=== PATIENT | female | born 1955 | race Caucasian/White ===

== ENCOUNTER 2017-08-01 12:05 | Emergency (ER) | payer OTHER ==
[2017-08-01 12:13] VITALS: BMI 38.4
[2017-08-01 12:15] VITALS: RESP 18
[2017-08-01] MEDS ORDERED: Oxycodone/Acetaminophen 5/325 mg Tab PO STA (13:12)
[2017-08-01] MEDS ORDERED: Oxycodone/Acetaminophen 5/325 mg Tab ONE (13:37)
--- NOTE | 2017-08-01 13:50 | RAD ---
PROCEDURE: Radiographs of the Lumbar Spine. HISTORY: pain COMPARISON: No prior. FINDINGS: BONES: Normal alignment. No listhesis. No compression deformity. DISC SPACES: Unremarkable. OTHER FINDINGS: Facet arthropathy. IMPRESSION: Degenerative changes. If symptoms persist, cross-sectional imaging with MRI should be obtained.
--- NOTE | 2017-08-01 13:54 | RAD ---
Right hip History: Pain. Technique: Two views of the right hip. Findings: No radiographically apparent fracture. Degenerative changes of the right hip. This appears more in comparison to the left hip. There is joint space narrowing and productive changes involving the acetabulum. Impression: There is no radiographically apparent fracture. Moderate to severe arthritic changes involving the right hip. MRI should be obtained if symptoms persist.
[2017-08-01 14:00] LABS: URINE BILIRUBIN NEGATIVE (NEGATIVE); URINE BLOOD NEGATIVE (NEGATIVE); URINE CLARITY Clear (Clear); URINE COLOR Yellow (YELLOW); URINE GLUCOSE (UA) NORMAL (Normal); URINE LEUKOCYTE ESTERASE NEG Leu/uL (Negative); URINE PROTEIN NEGATIVE (NEGATIVE); URINE UROBILINOGEN NORMAL mg/dL (0.2-1.0)
--- NOTE | 2017-08-01 14:08 | C.PDOC ---
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 Patient also reports having associated dysuria, urinary frequency, and urinary urgency for the past 2 weeks. Patient has not seen PMD for her symptoms. Denies fever, weakness, or numbness. Time Seen by Provider: 08/01/17 12:59 Chief Complaint (Nursing): Lower Extremity Problem/Injury History Per: Patient History/Exam Limitations: no limitations Onset/Duration Of Symptoms: Days Current Symptoms Are (Timing): Still Present Recent travel outside of the [place]: No Past Medical History Reviewed: Historical Data, Nursing Documentation, Vital Signs Vital Signs: Last Vital Signs Temp 98.1 F 08/01/17 14:25 Pulse 68 08/01/17 14:25 Resp 18 08/01/17 14:25 BP 110/70 08/01/17 14:25 Pulse Ox 97 08/01/17 14:25 - Medical History PMH: Arthritis Family History: States: Unknown Family Hx - Social History Hx Alcohol Use: No Hx Substance Use: No - Immunization History Hx Tetanus Toxoid Vaccination: No Hx Influenza Vaccination: No Hx Pneumococcal Vaccination: No Review Of Systems Constitutional: Negative for: Fever Genitourinary: Positive for: Dysuria, Frequency, Other (Urgency) Musculoskeletal: Positive for: Back Pain (Right lower), Leg Pain (Right), Other (right hip) Neurological: Negative for: Weakness, Numbness Physical Exam - Physical Exam Appears: Non-toxic, No Acute Distress Skin: Normal Color, Warm, Dry Head: Atraumatic, Normacephalic Eye(s): bilateral: Normal Inspection Gastrointestinal/Abdominal: Soft, No Tenderness Back: Paraspinal Tenderness (Right lumbar) Extremity: Tenderness (Right posterior thigh, right posterior buttock), No Deformity, No Swelling Neurological/Psych: Oriented x3, Normal Speech, Normal Motor, Normal Sensation Gait: Steady ED Course And Treatment O2 Sat by Pulse Oximetry: 95 (room air) Pulse Ox Interpretation: Normal - Other Rad LS Spine X-ray X-Ray: Viewed By Me, Read By Radiologist Interpretation: PROCEDURE: Radiographs of the Lumbar Spine. HISTORY: pain. COMPARISON: No prior. FINDINGS: BONES: Normal alignment. No listhesis. No compression deformity. DISC SPACES: Unremarkable. OTHER FINDINGS: Facet arthropathy. IMPRESSION: Degenerative changes. If symptoms persist, cross- sectional imaging with MRI should be obtained. Right Hip X-ray X-Ray: Viewed By Me, Read By Radiologist Interpretation: Right hip. History: Pain. Technique: Two views of the right hip. Findings: No radiographically apparent fracture. Degenerative changes of the right hip. This appears more in comparison to the left hip. There is joint space narrowing and productive changes involving the acetabulum. Impression: There is no radiographically apparent fracture. Moderate to severe arthritic changes involving the right hip. MRI should be obtained if symptoms persist. Progress Note: LS spine x-ray and right hip x-ray ordered, results were negative. Urinalysis ordered. Percocet administered. Disposition - Disposition Referrals: Cyril Brown III, MD [Staff Provider] - [facility] [Outside] Disposition: HOME/ ROUTINE Disposition Time: 14:28 Condition: STABLE Additional Instructions: Follow up with your PMD and Orthopedist within 1-2 days. Return to ED if feel worse. 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 - Scribe Statement The provider has reviewed the documentation as recorded by the Scribe Long Chin All medical record entries made by the Scribcedrick were at my direction and personally dictated by me. I have reviewed the chart and agree that the record accurately reflects my personal performance of the history, physical exam, medical decision making, and the department course for this patient. I have also personally directed, reviewed, and agree with the discharge instructions and disposition.
[2017-08-01 14:27] VITALS: PULSE 68; TEMP 98.1
[2017-08-01 14:31] VITALS: O2SAT 95
[2017-08-01 14:35] VITALS: BP 116/70
== END 2017-08-01 15:12 | disposition home or self-care (01) ==
LOC: C.ER 12:05
DX: M54.16 Radiculopathy, lumbar region (principal); M25.551 Pain in right hip

== ENCOUNTER 2017-09-10 13:45 | Emergency (ER) | payer OTHER ==
[2017-09-10 13:55] VITALS: BMI 35.4
[2017-09-10 14:00] VITALS: BP 118/80; PULSE 80; RESP 18; TEMP 98.3; O2SAT 96
[2017-09-10] MEDS ORDERED: Oxycodone/Acetaminophen 5/325 mg Tab ONE (14:35)
[2017-09-10] MEDS: Oxycodone/Acetaminophen 5/325 mg Tab PO STA (14:36)
--- NOTE | 2017-09-10 14:51 | C.PDOC ---
History Of Present Illness 62 y/o female presents to the ED accompanied by daughter for evaluation of right hip pain, chronic in nature. Patient was seen here 08/01 for the same complaint and diagnosed with severe right hip arthritis. Patient was referred to [facility] and given rx for Percocet at that time. Daughter states patient has filled the prescription but is not taking the Percocet regularly because it does not work. Last dose taken last night. Patient also took naproxen this morning without relief of pain. She has not followed up with ortho as daughter states that Dr. Brown is too far from them. Otherwise patient denies any new injury, numbness, tingling, or focal weakness. Time Seen by Provider: 09/10/17 14:22 Chief Complaint (Nursing): Lower Extremity Problem/Injury History Per: Family (Daughter at bedside translating Persian for patient) History/Exam Limitations: no limitations Onset/Duration Of Symptoms: Days Current Symptoms Are (Timing): Still Present Past Medical History Reviewed: Historical Data, Nursing Documentation, Vital Signs Vital Signs: Last Vital Signs Temp 98.3 F 09/10/17 13:55 Pulse 80 09/10/17 13:55 Resp 18 09/10/17 13:55 BP 118/80 09/10/17 13:55 Pulse Ox 96 09/10/17 15:06 - Medical History PMH: Arthritis, Asthma Family History: States: Unknown Family Hx - Social History Hx Alcohol Use: No Hx Substance Use: No - Immunization History Hx Tetanus Toxoid Vaccination: No Hx Influenza Vaccination: No Hx Pneumococcal Vaccination: Yes Review Of Systems Except As Marked, All Systems Reviewed And Found Negative. Musculoskeletal: Positive for: Leg Pain (right hip) Neurological: Negative for: Weakness, Numbness, Other (tingling) Physical Exam - Physical Exam Appears: Non-toxic, No Acute Distress, Other (Persian female, Older than stated age, Morbidly obese) Skin: Normal Color, Warm, Dry Head: Atraumatic, Normacephalic Eye(s): bilateral: Normal Inspection Neck: Normal ROM Chest: Symmetrical Extremity: Normal ROM, Capillary Refill (< 2 sec), No Deformity, No Swelling, Other (Pain to right hip on ROM, resolves at rest) Pulses: Left Dorsalis Pedis: Normal, Right Dorsalis Pedis: Normal Neurological/Psych: Oriented x3, Normal Motor, Normal Sensation, No Other ( focal deficits) Gait: Steady ED Course And Treatment O2 Sat by Pulse Oximetry: 96 (RA) Pulse Ox Interpretation: Normal Medical Decision Making Medical Decision Making: Impression: chronic R hip arthritis pain, referred to Dr. Brown- Ortho- 6 wks ago but pt and family @ bedside w poor insight and lost to follow-up Discussed w/ patient's PMD, Dr. Cornel Cardona, to help facilitate follow up plan Non-compliant with Percocet- one given in ED Patient is medically stable at this time. Counseled regarding the need for orthopedic follow up, referral to Dr. Brown again provided. Meds and follow-up reinforced. Daughter at bedside translating for patient to ensure understanding. Disposition Doctor Will See Patient In The: Office Counseled Patient/Family Regarding: Studies Performed, Diagnosis - Disposition Referrals: Cyril Brown III, MD [Staff Provider] - Curt Edward MD [Medical Doctor] - Disposition: HOME/ ROUTINE Disposition Time: 14:52 Condition: GOOD Additional Instructions: continue Naproxyn 500 mg every 12 hours as needed Percocet 1 tablet (strong narcotic pain reliever) every 6 hours as needed for pain/sleep Call Dr. Brown (Orthopedic Surgeon) to make an appointment. Call today!! Dr. Davidson will help you if you need guidance. Instructions: Osteoarthritis (DC) Forms: [email or web address] (Tajik) - Clinical Impression Clinical Impression: Hip arthritis - Scribe Statement The provider has reviewed the documentation as recorded by the Scribe (Eula Marques) Provider Attestation: All medical record entries made by the Scribe were at my direction and personally dictated by me. I have reviewed the chart and agree that the record accurately reflects my personal performance of the history, physical exam, medical decision making, and the department course for this patient. I have also personally directed, reviewed, and agree with the discharge instructions and disposition.
== END 2017-09-10 15:10 | disposition home or self-care (01) ==
LOC: C.ER 13:45
DX: M16.11 Unilateral primary osteoarthritis, right hip (principal)

== ENCOUNTER 2017-11-21 19:22 | Emergency (ER) | payer OTHER ==
[2017-11-21 19:23] VITALS: BMI 35.4
[2017-11-21 19:44] VITALS: RESP 18
[2017-11-21] MEDS ORDERED: Sodium Chloride 0.9% 500 ML IV ONE ×2 (19:58→20:10)
--- NOTE | 2017-11-21 20:01 | C.PDOC ---
History Of Present Illness 62 year old female presents to the ER via EMS for a complaint of RLQ abdominal pain, right lower back pain, and right knee pain after a trip and fall on an uneven sidewalk. Patient states she landed forward onto her right knee, denies any head injury or LOC. Patient also notes she has been having dysuria for the past 3 weeks. Patient denies nausea, vomiting, diarrhea, flank pain, chest pain , SOB, palpitations. Patient has a Hx of chronic arthritis to the right hip and lower back. Time Seen by Provider: 11/21/17 19:27 Chief Complaint (Nursing): Abdominal Pain History Per: Patient History/Exam Limitations: no limitations Onset/Duration Of Symptoms: Hrs Current Symptoms Are (Timing): Still Present Location Of Pain/Discomfort: RLQ Radiation Of Pain To:: None Quality Of Discomfort: "Pain" Associated Symptoms: Back Pain, Urinary Symptoms (Dysuria), Other ((+) Right knee pain ). denies: Fever, Nausea, Vomiting, Diarrhea, Chest Pain Exacerbating Factors: None Alleviating Factors: None Recent travel outside of the [place]: No Abnormal Vaginal Bleeding: No Past Medical History Reviewed: Historical Data, Nursing Documentation, Vital Signs Vital Signs: Last Vital Signs Temp 97.6 F 11/21/17 22:06 Pulse 72 11/21/17 22:06 Resp 18 11/21/17 22:06 BP 116/78 11/21/17 22:06 Pulse Ox 95 11/23/17 01:43 - Medical History PMH: Arthritis, Asthma Surgical History: No Surg Hx Family History: States: No Known Family Hx - Social History Hx Alcohol Use: No Hx Substance Use: No - Immunization History Hx Tetanus Toxoid Vaccination: No Hx Influenza Vaccination: No Hx Pneumococcal Vaccination: Yes Review Of Systems Constitutional: Negative for: Fever, Chills Gastrointestinal: Positive for: Abdominal Pain. Negative for: Nausea, Vomiting , Diarrhea Genitourinary: Positive for: Dysuria. Negative for: Hematuria Musculoskeletal: Positive for: Back Pain, Leg Pain Skin: Negative for: Rash Neurological: Negative for: Weakness, Numbness Physical Exam - Physical Exam Appears: Well, Non-toxic, Other (Mild pain) Skin: Normal Color, Warm, Dry, No Rash Head: Atraumatic, Normacephalic Eye(s): bilateral: Normal Inspection Oral Mucosa: Moist Neck: Normal, Supple Cardiovascular: Rhythm Regular Respiratory: Normal Breath Sounds, No Rales, No Rhonchi, No Wheezing Gastrointestinal/Abdominal: Bowel Sounds, Soft, Tenderness (Mildly TTP at RLQ and suprapubic area. (-) [place]'s), No Guarding, No Rebound, Other (Obese) Back: No CVA Tenderness Extremity: No Calf Tenderness, Capillary Refill (<2 seconds), Other (Right knee diffusely tender to palpation, small abrasion over patella, mild swelling.) Pulses: Left Dorsalis Pedis: Normal, Right Dorsalis Pedis: Normal Neurological/Psych: Oriented x3, Normal Motor, Normal Sensation Gait: Steady ED Course And Treatment - Laboratory Results Result Diagrams: 11/21/17 20:01 11/21/17 20:01 O2 Sat by Pulse Oximetry: 95 (Room air) Pulse Ox Interpretation: Normal - Other Rad right knee xray X-Ray: Read By Radiologist Interpretation: EXAM: XR Right Knee, 3 views. CLINICAL HISTORY: 62 years old , female; Pain; Knee; Right; Additional info: Right knee pain after fall. TECHNIQUE: Three views of the right knee. COMPARISON: No relevant prior studies available. FINDINGS: Bones/joints: Normal bone mineralization. Tricompartmental joint space narrowing and osteophyte. formation. No fracture. Insall-Salvati ratio of 1.3. No dislocation. No joint effusion. Soft tissues: The soft tissues are unremarkable. IMPRESSION: 1. Tricompartmental osteoarthrosis of the right knee. 2. 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 This can predispose to patellar maltracking. Thank you for allowing us to participate in the care of your patient. Dictated and Authenticated by: Wil Carrillo DO. 11/21/2017 9:35 PM Eastern Time ([place] & [place]) - CT Scan/US ct abd/pelvis Other Rad Studies (CT/US): Read By Radiologist, Radiology Report Reviewed CT/US Interpretation: EXAM: CT Abdomen and Pelvis Without Intravenous Contrast. CLINICAL HISTORY: 62 years old, female; Pain; Abdominal pain; Flank ; Right lower quadrant (rlq); Additional info: Rlq. pain. TECHNIQUE: Axial computed tomography images of the abdomen and pelvis without intravenous contrast. All CT. scans at this facility use at least one of these dose optimization techniques: automated exposure. control; mA and/or kV adjustment per patient size (includes targeted exams where dose is matched to. clinical indication); or iterative reconstruction. Coronal and sagittal reformatted images were created and reviewed. COMPARISON: No relevant prior studies available. FINDINGS: Lung bases: Subpleural reticular opacities within the dependent aspect of the lower lobes may. represent subsegmental atelectasis or scarring. Motion artifact limits evaluation along bases. 5 mm. lateral basilar segment left lower lobe pulmonary nodule (axial image 19). ABDOMEN: Liver: The liver is normal in appearance. Gallbladder and bile ducts: There has been a cholecystectomy. There is a mild, expected degree of. intrahepatic and common bile duct dilation. Pancreas: There is diffuse, benign fatty infiltration of the pancreas. No ductal dilation. Spleen: The spleen is normal. Adrenals: Normal appearance of the adrenals. Kidneys and ureters: The kidneys are normal. The ureters are normal. No obstructing stones. No. hydronephrosis. Stomach and bowel: Moderate stool within the colon. No obstruction. No mucosal thickening. PELVIS: AUSTYN LOGAN | Preliminary Radiology Report. CONFIDENTIALITY STATEMENT. This report is intended only for the use of the referring physician , and only in accordance with law, If you received this in error, call . Page 2 of 2. Appendix: A normal appendix is identified. Bladder: The bladder is normal. No stones. Reproductive: The uterus is atrophic or absent. Normal appearance of the adnexa. ABDOMEN and PELVIS: Intraperitoneal space: Normal. No free air. No significant fluid collection. Bones/joints: Mild thoracolumbar spondylosis. No acute osseous abnormality. No dislocation. Soft tissues: Normal. Vasculature: Normal. No abdominal aortic aneurysm. Lymph nodes: Central mesenteric fat stranding with small intervening lymph nodes. IMPRESSION: 1. Normal appendix. 2. Imaging findings suggestive of sclerosing mesenteritis. Consider follow up imaging in 6-12 months. to assess for interval change as earlier abdominal lymphoma, while less likely, can have a similar. imaging appearance. 3. Left lower lobe pulmonary nodule measuring 5 mm. For low-risk patients, no follow-up is. necessary. For high-risk patients ( smoking history or other known risk factors) an optional chest CT. at 12 months could be performed. Thank you for allowing us to participate in the care of your patient. Dictated and Authenticated by: Wil Carrillo DO. 2017 9:12 PM Eastern Time ([place] & [place]) Progress Note: Blood work, UA, CT scan abd/pelvis and Xray of right knee ordered and reviewed. Patient given IV NS bolus, IV Toradol, PO Flexeril. Reevaluation Time: 21:55 Reassessment Condition: Improved (Patient resting comfortably, states pain has improved. UA (+) for UTI. On exam, abdomen is soft and nontender. Patient given PO Ciprofloxacin in ED, as well as Rxs for Cipro, Naprosyn and Flexeril. Patient instructed to follow up with PMD in 1-2 days, and with orthopedics within 1 week. She understands she should return to ED if symptoms worsen.) Disposition Counseled Patient/Family Regarding: Studies Performed, Diagnosis, Need For Followup, Rx Given - Disposition Referrals: Mica Cardona [Staff Provider] - Cyril Brown III, MD [Staff Provider] - [facility] [Outside] Disposition: HOME/ ROUTINE Disposition Time: 21:55 Condition: STABLE Additional Instructions: FOLLOW UP WITH YOUR DOCTOR IN 1-2 DAYS, AND BRING COPIES OF ALL STUDIES HAVE REPEAT CT SCAN OF ABDOMEN/PELVIS IN 6-12 MONTHS FOLLOW UP WITH ORTHOPEDICS WITHIN 1 WEEK RETURN TO EMERGENCY ROOM IF SYMPTOMS WORSEN Prescriptions: Ciprofloxacin [Cipro] 1 tab PO BID #14 tab Cyclobenzaprine [Flexeril] 10 mg PO BID PRN #15 tab PRN Reason: Muscle Spasm Naproxen 375 mg PO BID PRN #20 tablet PRN Reason: pain Instructions: Urinary Tract Infection, Adult (DC), Knee Sprain (DC) Forms: [employer] (Filipino) Print Language: MAURITANIAN - POA Present On Arrival: Falls Or Trauma - Clinical Impression Clinical Impression: Fall, Right knee sprain, UTI (urinary tract infection), Sclerosing mesenteritis - Scribe Statement The provider has reviewed the documentation as recorded by the Scribcedrick Chin All medical record entries made by the Scribe were at my direction and personally dictated by me. I have reviewed the chart and agree that the record accurately reflects my personal performance of the history, physical exam, medical decision making, and the department course for this patient. I have also personally directed, reviewed, and agree with the discharge instructions and disposition.
[2017-11-21 20:04] LABS: BASO # 0.1 K/uL (0.0-0.2); EOS # 0.5 K/uL (0.0-0.7); EOS % 7.6 % (0.0-4.0); HEMOGLOBIN 12.7 g/dL (11.0-16.0); LYMPH # 1.9 K/uL (1.0-4.3); LYMPH % 26.7 % (20.0-40.0); MEAN CELL VOLUME 85.6 fL (81.0-99.0); MEAN CORPUSCULAR HEMOGLOBIN 28.5 pg (27.0-31.0); MEAN CORPUSCULAR HGB CONC 33.3 g/dL (33.0-37.0); MEAN PLATELET VOLUME 8.1 fL (7.2-11.7); MONO # 0.9 K/uL (0.0-0.8); MONO % 12.6 % (0.0-10.0); NEUT # 3.7 K/uL (1.8-7.0); NEUT % 52.1 % (50.0-75.0); NRBC % 0.1 % (0.0-2.0); RBC 4.45 Mil/uL (3.80-5.20); RED CELL DISTRIBUTION WIDTH 12.3 % (11.5-14.5); WHITE BLOOD COUNT 7.1 K/uL (4.8-10.8)
[2017-11-21 20:17] LABS: ALB/GLOB RATIO 1.5 (1.0-2.1); ALBUMIN 4.1 g/dL (3.5-5.0); ALT/SGPT 30 U/L (9-52); AST/SGOT 30 U/L (14-36); BLOOD UREA NITROGEN 16 mg/dL (7-17); CALCIUM 9.1 mg/dl (8.6-10.4); GFR AFRICAN-AMERICAN > 60; GFR NON-AFRICAN AMERICAN > 60; LIPASE 62 U/L (23-300)
[2017-11-21 21:05] LABS: SQUAMOUS EPITHIAL 4 /hpf (0-5); URINE BILIRUBIN NEGATIVE (NEGATIVE); URINE BLOOD 2+ (NEGATIVE); URINE CLARITY Clear (Clear); URINE COLOR Yellow (YELLOW); URINE GLUCOSE (UA) NORMAL (Normal); URINE LEUKOCYTE ESTERASE 3+ Leu/uL (Negative); URINE PROTEIN NEGATIVE (NEGATIVE); URINE UROBILINOGEN NORMAL mg/dL (0.2-1.0)
[2017-11-21 22:07] VITALS: BP 116/78; PULSE 72; TEMP 97.6
--- NOTE | 2017-11-22 07:12 | CT ---
Date of service: 11/21/2017 PROCEDURE: CT Abdomen and Pelvis without intravenous contrast HISTORY: Right lower quadrant abdominal pain COMPARISON: None. TECHNIQUE: Multiple contiguous axial images were performed through the abdomen and pelvis without the use of intravenous contrast. Subsequently, sagittal and coronal reformatted images were obtained. Radiation dose: Total exam DLP = 1136 mGy-cm. This CT exam was performed using one or more of the following dose reduction techniques: Automated exposure control, adjustment of the mA and/or kV according to patient size, and/or use of iterative reconstruction technique. FINDINGS: LOWER THORAX: Subpleural reticular opacities within the dependent aspect of the lower lobes may represent subsegmental atelectasis and/or scarring. Motion artifact limits evaluation along the lung bases. 5 millimeter pulmonary nodule within the lateral basilar segment of the left lower lobe on image 19. LIVER: Unremarkable. No gross lesion or ductal dilatation. GALLBLADDER AND BILE DUCTS: Prior cholecystectomy. Mild expected degree of intrahepatic and common bile duct dilatation. PANCREAS: Fatty infiltration of the pancreas. SPLEEN: Unremarkable. ADRENALS: Unremarkable. No mass. KIDNEYS AND URETERS: Unremarkable. No hydronephrosis. No solid mass. VASCULATURE: Unremarkable. No aortic aneurysm. BOWEL: Unremarkable. No obstruction. No gross mural thickening. Moderate fecal retention in the colon. APPENDIX: Unremarkable. Normal appendix. PERITONEUM: Unremarkable. No free fluid. No free air. LYMPH NODES: Central mesenteric fat stranding with small intervening lymph nodes. Few shotty inguinal lymph nodes. BLADDER: Unremarkable. REPRODUCTIVE: Atrophic and or absent uterus. BONES: Degenerative changes in the spine. OTHER FINDINGS: None. IMPRESSION: 1. Normal appendix. 2. Central mesenteric fat stranding with small intervening lymph nodes. This may represent a sclerosing mesenteritis. Consider follow-up imaging in 6-12 months to assess for interval change as early abdominal lymphoma, while although less likely, can have a similar imaging appearance. Additional etiologies not excluded. 3. Left lower lobe pulmonary nodule measuring 5 millimeters. Three-month interval follow-up may be helpful if clinically indicated. These findings were preliminarily reported at 9:12 p.m. on 11/21/[address] Wil Carrillo from [facility].
--- NOTE | 2017-11-22 10:13 | RAD ---
Right knee three views History: Pain after fall. Comparison: None available. Findings: No significant knee joint effusion. Moderate patellofemoral compartment joint space narrowing with subchondral sclerosis and osteophytosis. Moderate medial and lateral compartment joint space narrowing with subchondral sclerosis and osteophytosis. Question mild concavity of the articular surface of the lateral proximal tibia which may be related to patient positioning. Clinical correlation. If pain persists, correlation with MRI may be helpful. Heterotopic bone versus osteophyte formation versus small loose body at the posterior aspect of the proximal tibia projecting over the femorotibial joint space on the lateral view. Impression: Question mild concavity of the articular surface of the lateral proximal tibia which may be related to patient positioning. Clinical correlation. If pain persists, correlation with MRI may be helpful. Heterotopic bone versus osteophyte formation versus small loose body at the posterior aspect of the proximal tibia projecting over the femorotibial joint space on the lateral view. Moderate patellofemoral compartment joint space narrowing with subchondral sclerosis and osteophytosis. Moderate medial and lateral compartment joint space narrowing with subchondral sclerosis and osteophytosis.
[2017-11-23 01:30] VITALS: O2SAT 95
== END 2017-11-21 22:07 | disposition home or self-care (01) ==
LOC: C.ER 19:22
DX: N39.0 Urinary tract infection, site not specified (principal); K65.4 Sclerosing mesenteritis; S83.91XA Sprain of unspecified site of right knee, initial encounter; W01.0XXA Fall on same level from slipping, tripping and stumbling without subsequent striking against object, initial encounter; Y92.480 Sidewalk as the place of occurrence of the external cause
CPT/HCPCS: 73562; 74176; 80053; 81001; 83690; 85025; 87086; 96361; 96374; 99284; J1885; J7040